=== PATIENT | male | born 1945 | race Caucasian/White ===

== ENCOUNTER 2018-08-04 20:35 | Emergency (ER) | payer MEDICARE ==
[~2018-08-04] VITALS: Ht 180.3 cm; Wt 111.1 kg
[2018-08-04 21:23] LABS: CLARITY,URINE SL CLOUDY (CLEAR); COLOR,URINE ORANGE (YELLOW); LEUKOCYTE ESTERASE ,URINE 2+ (NEGATIVE)
[2018-08-04 21:24] LABS: BILIRUBIN,URINE 1+ (NEGATIVE); KETONES,URINE TRACE (NEGATIVE); NITRITE,URINE POSITIVE (NEGATIVE); PROTEIN,URINE DIPSTICK 2+ (NEGATIVE); URINE UROBILINOGEN 8 mg/dL (0.2 - 1)
[2018-08-04 21:36] LABS: BACTERIA,URINE MODERATE /HPF; RBC,URINE >50 /HPF (0-5)
--- OUTSIDE RECORDS SUMMARY | 2018-08-24 08:13 | XMS REPORT ---
Author Author [facility] Address Unknown Phone Unavailable Care Team Providers Care Underwriting Analyst Name Role Phone Unavailable Unavailable Payers Payer Name Policy Type Policy Number Effective Date Expiration Date Problems This patient has no known problems. Allergies, Adverse Reactions, Alerts Allergy Name Allergy Type Status Severity Reaction(s) Onset Date Inactive Date Treating Clinician Comments codeine DA Active U 2018-08-15 00:00:00 pseudoephedrine DA Active U 2018-08-15 00:00:00 codeine DA Active U 2018-06-22 00:00:00 pseudoephedrine DA Active U 2018-06-22 00:00:00 SUDAFED DA Active U 2002-06-27 00:00:00 Medications This patient has no known medications.
== END 2018-08-04 22:47 | disposition home or self-care (01) ==
LOC: ER 20:35
DX: R33.9 Retention of urine, unspecified (principal); N40.1 Benign prostatic hyperplasia with lower urinary tract symptoms; N30.91 Cystitis, unspecified with hematuria; N13.9 Obstructive and reflux uropathy, unspecified
CPT/HCPCS: 51700; 81001; 87086; 87186; 99283

== ENCOUNTER 2018-08-19 12:15 | Emergency (ER) | payer MEDICARE ==
[~2018-08-19] VITALS: Ht 180.3 cm; Wt 102.1 kg
[2018-08-19 15:57] LABS: CLARITY,URINE SL CLOUDY (CLEAR); COLOR,URINE YELLOW (YELLOW)
[2018-08-19 15:58] LABS: KETONES,URINE 1+ (NEGATIVE); LEUKOCYTE ESTERASE ,URINE NEGATIVE (NEGATIVE); NITRITE,URINE NEGATIVE (NEGATIVE); PROTEIN,URINE DIPSTICK NEGATIVE (NEGATIVE); URINE UROBILINOGEN 0.2 mg/dL (0.2 - 1)
[2018-08-19 15:59] LABS: BILIRUBIN,URINE NEGATIVE (NEGATIVE)
[2018-08-19 16:00] LABS: BACTERIA,URINE FEW /HPF; CALCIUM OXALATE CRYSTALS,UR FEW (FEW); EPITHELIAL CELLS,URINE FEW /LPF; RBC,URINE 0-5 /HPF (0-5)
[2018-08-19 16:01] LABS: MUCUS,URINE FEW (RARE)
[2018-08-19 16:48] VITALS: BP 127/82
== END 2018-08-19 17:07 | disposition home or self-care (01) ==
LOC: ER 12:19
DX: R33.9 Retention of urine, unspecified (principal); N30.90 Cystitis, unspecified without hematuria; N40.1 Benign prostatic hyperplasia with lower urinary tract symptoms
CPT/HCPCS: 51700; 81001; 87086; 99284

== ENCOUNTER 2018-10-04 01:04 | Emergency (ER) | payer MEDICARE ==
[~2018-10-04] VITALS: Ht 180.3 cm; Wt 102.1 kg
[2018-10-04] MEDS ORDERED: ATENOLOL 50 MG TAB ONE (01:19)
[2018-10-04] MEDS ORDERED: ATENOLOL 50 MG TAB PO ONE (01:30)
[2018-10-04 02:09] LABS: CLARITY,URINE CLOUDY (CLEAR); COLOR,URINE YELLOW (YELLOW); LEUKOCYTE ESTERASE ,URINE 2+ (NEGATIVE); NITRITE,URINE POSITIVE (NEGATIVE); PROTEIN,URINE DIPSTICK TRACE (NEGATIVE)
[2018-10-04 02:10] LABS: BACTERIA,URINE MANY /HPF; BILIRUBIN,URINE NEGATIVE (NEGATIVE); EPITHELIAL CELLS,URINE FEW /LPF; KETONES,URINE NEGATIVE (NEGATIVE); MUCUS,URINE FEW (RARE); RBC,URINE >50 /HPF (0-5); URINE UROBILINOGEN 0.2 mg/dL (0.2 - 1); WBC,URINE (MAN) 21-50 /HPF (0-5)
[2018-10-04] MEDS ORDERED: KEFLEX500 MG PO (02:12)
[2018-10-04 02:22] VITALS: BP 137/90
== END 2018-10-04 02:23 | disposition home or self-care (01) ==
LOC: ER 01:04
DX: Z46.6 Encounter for fitting and adjustment of urinary device (principal); R30.0 Dysuria
CPT/HCPCS: 51700; 81001; 99283

== ENCOUNTER 2018-12-23 05:28 | Emergency (ER) | payer MEDICARE ==
[~2018-12-23] VITALS: Ht 180.3 cm; Wt 102.1 kg
[~2018-12-23 05:28] MED LIST: KEFLEX500 MG PO
[2018-12-23] MEDS ORDERED: LIDOCAINE JELLY 2% 10ML URO-JET TOP ONE (05:45)
[2018-12-23 06:23] LABS: CLARITY,URINE HAZY (CLEAR); COLOR,URINE YELLOW (YELLOW); LEUKOCYTE ESTERASE ,URINE 2+ (NEGATIVE); NITRITE,URINE NEGATIVE (NEGATIVE); PROTEIN,URINE DIPSTICK NEGATIVE (NEGATIVE)
[2018-12-23 06:24] LABS: BILIRUBIN,URINE NEGATIVE (NEGATIVE); KETONES,URINE NEGATIVE (NEGATIVE); URINE UROBILINOGEN 0.2 mg/dL (0.2 - 1)
[2018-12-23 06:25] LABS: BACTERIA,URINE FEW /HPF; EPITHELIAL CELLS,URINE FEW /LPF; WBC,URINE (MAN) 21-50 /HPF (0-5)
== END 2018-12-23 06:57 | disposition home or self-care (01) ==
LOC: ER 05:28
DX: R33.9 Retention of urine, unspecified (principal); N30.90 Cystitis, unspecified without hematuria; N40.1 Benign prostatic hyperplasia with lower urinary tract symptoms
CPT/HCPCS: 51700; 81001; 87086; 99282

== ENCOUNTER 2019-01-12 20:43 | Emergency (ER) | payer MEDICARE ==
[~2019-01-12] VITALS: Ht 180.3 cm; Wt 102.1 kg
[2019-01-12 21:03] LABS: BASOPHILS # (AUTO) 0.1 (0.0-0.1); BASOPHILS % 0.6 % (0.0-1.0); EOSINOPHILS # (AUTO) 0.1 (0.0-0.4); EOSINOPHILS % 1.3 % (0.0-6.0); HEMATOCRIT 48.2 % (38.2-49.6); HEMOGLOBIN 16.8 g/dL (14.0-18.0); LYMPHOCYTES # (AUTO) 1.6 (1.0-3.2); LYMPHOCYTES % 18.6 % (18.0-39.1); MEAN CORPUSCULAR HEMOGLOBIN 30.1 pg (28-32); MEAN CORPUSCULAR HGB CONC 34.9 g/dL (31-35); MEAN CORPUSCULAR VOLUME 86.2 fL (81-99); MONOCYTES # (AUTO) 0.8 (0.2-0.8); MONOCYTES % 9.2 % (4.4-11.3); NEUTROPHILS # (AUTO) 5.9 (2.1-6.9); NEUTROPHILS % 69.9 % (38.7-80.0); PLATELET COUNT 186 x10e3/uL (140-360); RED BLOOD COUNT 5.59 x10e6/uL (4.3-5.7); RED CELL DISTRIBUTION WIDTH 14.3 % (11.7-14.4)
[2019-01-12 21:05] LABS: BILIRUBIN,URINE 1+ (NEGATIVE); CLARITY,URINE CLOUDY (CLEAR); COLOR,URINE AMBER (YELLOW); KETONES,URINE TRACE (NEGATIVE); LEUKOCYTE ESTERASE ,URINE 2+ (NEGATIVE); NITRITE,URINE POSITIVE (NEGATIVE); PROTEIN,URINE DIPSTICK 2+ (NEGATIVE); URINE UROBILINOGEN 0.2 mg/dL (0.2 - 1)
[2019-01-12 21:09] LABS: INR 1.76; PROTHROMBIN TIME 21.9 seconds (11.9-14.5)
[2019-01-12 21:10] LABS: PARTIAL THROMBOPLASTIN TIME 42.3 seconds (23.8-35.5)
[2019-01-12 21:17] LABS: RBC,URINE >50 /HPF (0-5); WBC,URINE (MAN) >50 /HPF (0-5)
[2019-01-12 21:18] LABS: ALBUMIN 4.2 g/dL (3.5-5.0); ALBUMIN/GLOBULIN RATIO 1.3 (0.8-2.0); ANION GAP 14.9 mmol/L (8-16); CALCIUM 9.9 mg/dL (8.4-10.2); CREATININE, SERUM 1.24 mg/dL (0.72-1.25); POTASSIUM 3.9 mmol/L (3.5-5.1)
[2019-01-12 22:35] VITALS: BP 146/92
== END 2019-01-12 22:40 | disposition home or self-care (01) ==
LOC: ER 20:43
DX: N30.91 Cystitis, unspecified with hematuria (principal); I10 Essential (primary) hypertension; E78.5 Hyperlipidemia, unspecified; Z86.718 Personal history of other venous thrombosis and embolism
CPT/HCPCS: 36415; 80053; 81001; 85025; 85610; 85730; 87086; 87186; 99283

== ENCOUNTER → 2019-03-07 | Outpatient (CLI) | payer MEDICARE ==
[~2019-03-07] MED LIST changes: +IOPAMIDOL 370 MG/ML 200 ML INFUS..BTL INJ ONE; +METOPROLOL TARTRATE INJ 1 MG/ML VIAL ONE; +NITROGLYCERIN 0.4 MG SUBL ONE; +SODIUM CHLORIDE 0.9% 100 ML 100 ML ONE
[2019-03-07 08:39] LABS: CREATININE, SERUM 1.19 mg/dL (0.72-1.25)
--- NOTE | 2019-03-08 10:47 | Diagnostic Imaging Report ---
EXAM: CALCIUM SCORE AND CORONARY CTA INDICATION: ^[id number] ^[id number] ^spcd abn findings of blood chemisty COMPARISON: None. TECHNIQUE: Multi-detector CT technology was employed ([address] 750 HD 64 MDCT [employer]). Minimal slice thickness was performed following the intravenous administration of contrast material. The patient was premedicated with ... mg i.v. metoprolol and 0.4 mg sublingual nitroglycerin for heart rate control and coronary dilation, respectively. IV CONTRAST: 100 mL of Isovue-370 ORAL CONTRAST: None COMPLICATIONS: None RADIATION DOSE: Total DLP: 1474.4 mGy*cm Estimated effective dose: (DLP x 0.015 x size factor) mSv CTDIvol has been reviewed. It is below the limits set by the Radiation Protocol Committee (RPC). For optimization of anatomic evaluation, multiplanar reconstruction, maximum intensity projections, and advanced 3-D off-line postprocessing were performed on a dedicated stand-alone workstation under the direct supervision of the interpreting physician. QUALITY: Excellent with mild motion artifact in the proximal LAD FINDINGS: CALCIUM SCORE: The observed Agatston Calcium Score of 197 is at percentile between 25 and 50% for subjects of the same age and gender who are free of clinical cardiovascular disease and treated diabetes. The Agatston score for each vessel is as follows: LM: 0 LAD: 197 LCx: 0 RCA: 0 DISTRIBUTION OF THE CALCIFIED PLAQUES: Complex plaque involving the proximal LAD. CORONARY ANATOMY: There is normal origin of the coronary arteries. Left Main Coronary Artery: The left main is normal sized vessel that bifurcates into the LAD and circumflex. Soft tissue plaque in the distal segment resulting in mild stenosis. Left Anterior Descending Coronary Artery: The LAD is a normal size vessel that wraps around the apex. It gives rise to 2 acute diagonal branches. Complex mixed plaque, with large calcified component, in the proximal LAD and measuring 2 cm in length results in severe stenosis (70-99%). The plaque extends into the distal left main/bifurcation and ostium of the LCx. The remaining left main is widely patent without atherosclerotic disease. Left Circumflex Coronary Artery: The LCX is a normal size vessel, which is non-dominant. It gives rise to 2 obtuse marginal branches. Calcified plaque beginning at the bifurcation is seen involving the ostium of the LCx and resulting in severe stenosis. The remaining LCx is widely patent without atherosclerotic disease. Right Coronary Artery: The RCA is a normal size vessel, which is dominant. It gives rise to a conus branch, AV radha branch, and 2 acute marginal branches. In its distal segment it bifurcates into the PDA and PV branch. There is no evidence of atherosclerotic changes or stenotic disease. CARDIAC MORPHOLOGY AND FUNCTION: The right and left atria and ventricles are morphologically normal. LIMITED CHEST: Limited views of the visualized chest show no abnormality within chest wall and mediastinum. No mediastinal lymphadenopathy. The main pulmonary arteries normal in caliber measuring 2.9 cm in diameter. There is no filling defects in the main pulmonary artery and major branches. Segmental and subsegmental branches are not included on this exam. The visualized lungs are clear. The right ventricle and right atrium are mildly enlarged and suggestive of pulmonary hypertension in this patient with history of pulmonary embolism. The visualized portions of the ascending and descending thoracic aorta are of normal size. LIMITED ABDOMEN: Limited images of the upper abdomen reveal no abnormalities of the visualized organs. BONES: No acute osseous abnormalities. IMPRESSION: 1. Total Agatston Calcium Score: 197 that corresponds to percentile between 25 and 50%. 2. Normal coronary anatomy. 3. Complex mainly calcified plaque in the proximal LAD extending into the bifurcation and involving the ostium of the LCx resulting in severe stenosis (70-99%) - No atherosclerotic disease in the remaining coronary arteries. CAD-TIERNEY: 4A Recommendation: Interventional coronary angiogram. Reference: [email or web address] These findings were communicated to Dr Simon on 06/07/2019 10AM. Signed by: Dr. Basia Thompson M.D. on 03/08/2019 10:44 AM
== END ==
LOC: CT 07:20
PROVIDERS: ATTEND Internal Medicine
DX: R79.89 Other specified abnormal findings of blood chemistry (principal)
CPT/HCPCS: 36415; 75574; 82565; 84520; Q9967

== ENCOUNTER 2024-03-14 15:56 | Emergency (ER) | payer MEDICARE ==
[~2024-03-14] VITALS: Ht 180.3 cm; Wt 102.1 kg
[~2024-03-14 15:56] MED LIST changes: -IOPAMIDOL 370 MG/ML 200 ML INFUS..BTL INJ ONE; -METOPROLOL TARTRATE INJ 1 MG/ML VIAL ONE; -NITROGLYCERIN 0.4 MG SUBL ONE; -SODIUM CHLORIDE 0.9% 100 ML 100 ML ONE
[2024-03-14 16:42] VITALS: O2SAT 96
[2024-03-14 16:49] LABS: BASOPHILS % 0.3 % (0.0-1.0); EOSINOPHILS % 0.1 % (0.0-6.0); HEMATOCRIT 45.4 % (38.2-49.6); HEMOGLOBIN 16.1 g/dL (14.0-18.0); LYMPHOCYTES # (AUTO) 1.1 (1.0-3.2); LYMPHOCYTES % 8.1 % (18.0-39.1); MEAN CORPUSCULAR HEMOGLOBIN 31.8 pg (28-32); MEAN CORPUSCULAR HGB CONC 35.5 g/dL (31-35); MEAN CORPUSCULAR VOLUME 89.5 fL (81-99); MONOCYTES # (AUTO) 1.4 (0.2-0.8); MONOCYTES % 10.9 % (4.4-11.3); NEUTROPHILS # (AUTO) 10.6 (2.1-6.9); NEUTROPHILS % 80.2 % (38.7-80.0); PLATELET COUNT 144 x10e3/uL (140-360); RED BLOOD COUNT 5.07 x10e6/uL (4.3-5.7); RED CELL DISTRIBUTION WIDTH 13.6 % (11.7-14.4); WHITE BLOOD COUNT 13.15 x10e3/uL (4.8-10.8)
[2024-03-14 17:03] LABS: ALBUMIN 3.7 g/dL (3.5-5.0); ALBUMIN/GLOBULIN RATIO 1.1 (0.8-2.0); BILIRUBIN,TOTAL 1.3 mg/dL (0.2-1.2); CALCIUM 8.7 mg/dL (8.4-10.2); CREATININE, SERUM 1.25 mg/dL (0.72-1.25); TOTAL PROTEIN 7.1 g/dL (6.5-8.1)
[2024-03-14] MEDS ORDERED: LEVOFLOXACIN750 MG PO (19:25)
== END 2024-03-14 19:30 | disposition home or self-care (01) ==
LOC: ER 16:20
DX: R41.82 Altered mental status, unspecified (principal); R05.9 Cough, unspecified; I10 Essential (primary) hypertension; E78.5 Hyperlipidemia, unspecified; Z11.52 Encounter for screening for COVID-19; Z86.718 Personal history of other venous thrombosis and embolism
CPT/HCPCS: 36415; 70450; 71045; 80053; 82140; 84484; 85025; 87040; 93005; 99284; U0002